=== PATIENT | male | born 1995 | race Caucasian/White ===

== ENCOUNTER 2016-12-02 16:32 | Emergency (ER) | payer OTHER ==
[2016-12-02 16:37] VITALS: BMI 21.1
--- NOTE | 2016-12-02 17:29 | PDOC ---
History of Present Illness <ThiAlvaro - Last Filed: 12/02/16 21:41> - General History Source: Patient Exam Limitations: No Limitations - History of Present Illness Initial Comments: 12/02/16 18:12 The patient is a 21 year old male, with no significant past medical history, who presents to the emergency department with dizziness this morning. The patient states his dizziness began 3 days ago, intermittent with 4-5 episodes daily and is exacerbated with positional head changes. Patient states he is unable to walk straight secondary to his dizziness. Patient states he had a similar episode 2 years ago and was previously evaluated. Patient presents to the ED for further evaluation. He denies chest pain, headache. He denies fever, chills, nausea, vomit, diarrhea or constipation. He denies dysuria, frequency, urgency or hematuria. Allergies: NKA Past surgical history:None Social history: Denies PCP: Dr. Curiel <Dayan Bustos - Last Filed: 12/02/16 21:59> - General Chief Complaint: Lightheaded Stated Complaint: PCP SENT Time Seen by Provider: 12/02/16 17:29 Past History - Past Medical History Other medical history: NONE - Psycho/Social/Smoking Cessation Hx Anxiety: No Suicidal Ideation: No Smoking History: Never smoked Hx Alcohol Use: Yes (SOCIAL) Drug/Substance Use Hx: No Substance Use Type: None <Alvaro Ness - Last Filed: 12/02/16 21:41> <Dayan Bustos - Last Filed: 12/02/16 21:59> - Past Medical History Allergies/Adverse Reactions: Allergies Allergy/AdvReac Type Severity Reaction Status Date / Time No Known Allergies Allergy Verified 12/02/16 16:37 Home Medications: Ambulatory Orders Meclizine HCl [Antivert -] 25 mg PO QID #120 tablet 12/02/16 Review of Systems - Review of Systems Able to Perform ROS?: Yes Comments:: 12/02/16 18:12 GENERAL/CONSTITUTIONAL: No fever or chills. No weakness. HEAD, EYES, EARS, NOSE AND THROAT: No change in vision. No ear pain or discharge. No sore throat. CARDIOVASCULAR: No chest pain or shortness of breath. RESPIRATORY: No cough, wheezing, or hemoptysis. GASTROINTESTINAL: No nausea, vomiting, diarrhea or constipation. GENITOURINARY: No dysuria, frequency, or change in urination. MUSCULOSKELETAL: No joint or muscle swelling or pain. No neck or back pain. SKIN: No rash NEUROLOGIC: + dizziness. No headache, vertigo, loss of consciousness, or change in strength/sensation. ENDOCRINE: No increased thirst. No abnormal weight change. HEMATOLOGIC/LYMPHATIC: No anemia, easy bleeding, or history of blood clots. ALLERGIC/IMMUNOLOGIC: No hives or skin allergy. <Dayan Bustos - Last Filed: 12/02/16 21:59> *Physical Exam - Vital Signs Last Vital Signs Temp Pulse Resp BP Pulse Ox 98.0 F 96 H 20 147/82 98 12/02/16 16:33 12/02/16 16:33 12/02/16 16:33 12/02/16 16:33 12/02/16 16:33 <Alvaro Ness - Last Filed: 12/02/16 21:41> - Vital Signs Last Vital Signs Temp Pulse Resp BP Pulse Ox 98.0 F 96 H 20 147/82 98 12/02/16 16:33 12/02/16 16:33 12/02/16 16:33 12/02/16 16:33 12/02/16 16:33 - Physical Exam Comments: 12/02/16 18:12 GENERAL: Awake, alert, and fully oriented, in no acute distress HEAD: No signs of trauma EYES: PERRLA, EOMI, sclera anicteric, conjunctiva clear ENT: Auricles normal inspection, hearing grossly normal, nares patent, oropharynx clear without exudates. Moist mucosa NECK: Normal ROM, supple, no lymphadenopathy, JVD, or masses LUNGS: Breath sounds equal, clear to auscultation bilaterally. No wheezes, and no crackles HEART: Regular rate and rhythm, normal S1 and S2, no murmurs, rubs or gallops ABDOMEN: Soft, nontender, normoactive bowel sounds. No guarding, no rebound. No masses EXTREMITIES: Normal range of motion, no edema. No clubbing or cyanosis. No cords, erythema, or tenderness NEUROLOGICAL: +Nystagmus. Cranial nerves II through XII grossly intact. Normal speech, normal gait. SKIN: Warm, Dry, normal turgor, no rashes or lesions noted. <Dayan Bustos - Last Filed: 12/02/16 21:59> Heart Score/ECG Review #1 12/02/16 18:55 Previous EKG provided by Patient on 12/02/16 from Urgent [facility]. rate 74 NSR ME Interval 112/174 QRS Duration 88 ms QT/QTc 366/406 ms P-R-T axes 62/50/[address] Thi Moya. rate 75 bpm NSR ME Interval 176 ms QRS Duration 86 m QT/QTc 385/399 P-R-T axes 63 61 31 <Dayan Bustos - Last Filed: 12/02/16 21:59> ED Treatment Course - LABORATORY CBC & Chemistry Diagram: 12/02/16 18:20 12/02/16 18:20 <Alvaro Ness - Last Filed: 12/02/16 21:41> - LABORATORY CBC & Chemistry Diagram: 12/02/16 18:20 12/02/16 18:20 <Dayan Bustos - Last Filed: 12/02/16 21:59> Medical Decision Making - Medical Decision Making 12/02/16 18:12 Will check EKG, CXR, labs ,Urine and Head CT Orthostatics vs vertigo Will discharge with antivert. Will react if tests appear abnormal. Head CT IMPRESSION: No evidence of acute intracranial pathology. Reported By: Frantz Aleman MD Chest Xray <Dayan Bustos - Last Filed: 12/02/16 21:59> *DC/Admit/Observation/Transfer - Attestations Physician Attestion: 12/02/16 17:29 I, Dr. Alvaro Ness, attest that this document has been prepared under my direction and personally reviewed by me in its entirety. I further attest, that it accurately reflects all work, treatment, procedures and medical decision -making performed by me. <Alvaro Ness - Last Filed: 12/02/16 21:41> - Attestations Scribe Attestion: 12/02/16 18:13 Documentation prepared by Dayan Bustos, acting as medical leader for Alvaro Ness DO. <Dayan Bustos - Last Filed: 12/02/16 21:59> Diagnosis at time of Disposition: Vertigo Meniere syndrome Qualifiers: Laterality: unspecified laterality Qualified Code(s): H81.09 - Meniere's disease, unspecified ear - Discharge Dispostion Disposition: HOME Condition at time of disposition: Good - Prescriptions Prescriptions: Meclizine HCl [Antivert -] 25 mg PO QID #120 tablet - Referrals Referrals: Terrell Curiel MD [Primary Care Provider] - - Patient Instructions Printed Discharge Instructions: DI for Meniere's Disease, DI for Vertigo Additional Instructions: Eliel- Don't Drive until Dr Del Real says that it is ok. Use the antivert to help with the dizziness. Return to us if any problems. Best- Dr. Alvaro Ness
[2016-12-02 18:43] LABS: URINE APPEARANCE CLEAR; URINE BILIRUBIN NEGATIVE (NEGATIVE); URINE BLOOD NEGATIVE (NEGATIVE); URINE COLOR YELLOW; URINE GLUCOSE (UA) NEGATIVE (NEGATIVE); URINE KETONE TRACE (NEGATIVE); URINE LEUK ESTERASE NEGATIVE (NEGATIVE); URINE NITRITE NEGATIVE (NEGATIVE); URINE PROTEIN NEGATIVE (NEGATIVE); URINE UROBILINOGEN NEGATIVE E.U./dl (0.2-1.0)
[2016-12-02 18:56] LABS: BASOPHIL 0.7 % (0-2.0); MCHC 33.2 g/dl (32.0-35.9)
[2016-12-02 18:58] LABS: EOSINOPHIL 4.6 % (0-4.5); MCH 29.2 pg (25.7-33.7); MEAN CELL VOLUME 88.1 fl (80-96); MEAN PLT VOLUME 9.3 fl (7.5-11.1); NEUTROPHILS 55.1 % (42.8-82.8); PLATELET COUNT 178 K/MM3 (134-434); RDW 13.4 % (11.9-15.9); WHITE BLOOD COUNT 6.9 K/mm3 (4.0-10.0)
[2016-12-02 19:12] LABS: INR 1.09 (0.82-1.09)
[2016-12-02 19:58] LABS: ALBUMIN 4.2 g/dl (3.4-5.0); ANION GAP 12 (8-16); CALCIUM 9.2 mg/dL (8.5-10.1); CO2 26 mmol/L (21-32); COCKROFT - GAULT 131.03; CREATININE 0.9 mg/dL (0.7-1.3); GLUCOSE,RANDOM 94 mg/dL (74-106)
[2016-12-02 20:03] LABS: ALK PHOS 83 U/L (45-117); BILIRUBIN,TOTAL 0.2 mg/dL (0.2-1.0); SGOT/AST 19 U/L (15-37); SGPT/ALT 24 U/L (12-78); TOT PROT 7.5 g/dl (6.4-8.2); TROPONIN I < 0.02 ng/ml (0.00-0.05)
[2016-12-02 22:04] VITALS: BP 136/83; PULSE 71; TEMP 98.2
--- NOTE | 2016-12-03 13:07 | EKG ---
Test Reason : Blood Pressure : / mmHG Vent. Rate : 075 BPM Atrial Rate : 075 BPM P-R Int : 176 ms QRS Dur : 086 ms QT Int : 358 ms P-R-T Axes : 063 061 031 degrees QTc Int : 399 ms NORMAL SINUS RHYTHM NORMAL ECG NO PREVIOUS ECGS AVAILABLE Confirmed by PILI ROGERS MD ([id number]) on 12/03/2016 1:07:18 PM Referred By: Confirmed By:PILI ROGERS MD
== END 2016-12-02 22:04 | disposition home or self-care (01) ==
LOC: JER 16:32
DX: H81.09 Meniere's disease, unspecified ear (principal)
CPT/HCPCS: 36415; 70450-TC; 71010-TC; 80053; 81003; 82550; 82553; 84484; 85025; 85610; 93005; 93010; 99283-25

== ENCOUNTER 2017-08-09 10:08 | Emergency (ER) | payer OTHER ==
[2017-08-09 10:13] VITALS: BP 141/80; PULSE 103; TEMP 98.3; BMI 26.4
[2017-08-09] MEDS ORDERED: IBUPROFEN 400 MG TABLET (FP) PO ONE ×2 (11:12→11:17)
--- NOTE | 2017-08-09 11:22 | PDOC ---
History of Present Illness - General Chief Complaint: Injury Stated Complaint: LT ARM PAIN Time Seen by Provider: 08/09/17 11:07 History Source: Patient - History of Present Illness Occurred: reports: other Severity: reports: moderate Upper Extremity Pain Location: left: forearm Method of Injury: reports: other Past History - Past Medical History Allergies/Adverse Reactions: Allergies Allergy/AdvReac Type Severity Reaction Status Date / Time No Known Allergies Allergy Verified 08/09/17 10:09 Home Medications: Ambulatory Orders NK [No Known Home Medication] 08/09/17 COPD: No - Suicide/Smoking/Psychosocial Hx Smoking History: Never smoked Have you smoked in the past 12 months: No Information on smoking cessation initiated: No Hx Alcohol Use: Yes (SOCIAL) Drug/Substance Use Hx: No Substance Use Type: None Review of Systems - Review of Systems Musculoskeletal: No: Joint Pain, Joint Swelling Neurological: No: Numbness, Tingling *Physical Exam - Vital Signs Last Vital Signs Temp Pulse Resp BP Pulse Ox 98.3 F 103 H 18 141/80 100 08/09/17 10:11 08/09/17 10:11 08/09/17 10:11 08/09/17 10:11 08/09/17 10:11 - Physical Exam General Appearance: Yes: Appropriately Dressed. No: Apparent Distress HEENT: positive: Normal Voice Neck: positive: Supple Respiratory/Chest: negative: Respiratory Distress Musculoskeletal: positive: Vertebral Tenderness Extremity: positive: Normal Inspection, Tender (to volar aspect of proximal L forearm, no joint swelling, FROMI, NVI). negative: Swelling Integumentary: positive: Dry, Warm Neurologic: positive: Fully Oriented, Alert, Normal Mood/Affect Medical Decision Making - Medical Decision Making 08/09/17 11:15 21 yo male, no sig hx, p/w pain to L forearm that started 5 days ago after pt states he suddenly extended L elbow while playing with his nephew. Taking otc w / no relief but does admit that pain is gradually improving. No sensory changes See exam M/l LUE strain No e/o serious injury at this time -dc w/ otc meds and pmd f/u as needed *DC/Admit/Observation/Transfer Diagnosis at time of Disposition: Muscle strain of left upper arm Qualifiers: Encounter type: initial encounter Qualified Code(s): S46.912A - Strain of unspecified muscle, fascia and tendon at shoulder and upper arm level, left arm , initial encounter - Discharge Dispostion Disposition: HOME Condition at time of disposition: Good - Referrals Referrals: Terrell Curiel MD [Primary Care Provider] - - Patient Instructions Printed Discharge Instructions: Muscle Strain Additional Instructions: Take ibuprofen/Motrin 800 mg every 6 hours. If symptoms persist, please follow-up with your primary care physician - Post Discharge Activity Forms/Work/School Notes: Back to Work
== END 2017-08-09 11:22 | disposition home or self-care (01) ==
LOC: JERFT 10:08
DX: S46.812A Strain of other muscles, fascia and tendons at shoulder and upper arm level, left arm, initial encounter (principal); X50.0XXA Overexertion from strenuous movement or load, initial encounter; Y93.89 Activity, other specified; Y92.89 Other specified places as the place of occurrence of the external cause; Y99.8 Other external cause status
CPT/HCPCS: 99281-25

== ENCOUNTER 2017-11-22 08:58 | Emergency (ER) | payer OTHER ==
[2017-11-22 09:04] VITALS: BP 141/76; PULSE 77; TEMP 98.7; BMI 29.7
[2017-11-22 09:56] LABS: BASO % 0.6 % (0-2.0); EOS % 1.9 % (0-4.5); HEMATOCRIT 46.3 % (35.4-49); HEMOGLOBIN 15.9 GM/dL (11.7-16.9); LYMPH % 20.2 % (8-40); MCH 30.2 pg (25.7-33.7); MCHC 34.4 g/dl (32.0-35.9); MEAN CELL VOLUME 87.8 fl (80-96); MEAN PLT VOLUME 8.9 fl (7.5-11.1); MONO % 8.1 % (3.8-10.2); NEUT % 69.2 % (42.8-82.8); PLATELET COUNT 175 K/MM3 (134-434); RBC 5.27 M/mm3 (4.00-5.60); RDW 13.5 % (11.9-15.9); WHITE BLOOD COUNT 6.8 K/mm3 (4.0-10.0)
[2017-11-22 10:16] LABS: ALBUMIN 4.3 g/dl (3.4-5.0); ALK PHOS 102 U/L (45-117); ANION GAP 7 (8-16); BILIRUBIN,TOTAL 0.5 mg/dL (0.2-1.0); BLOOD UREA NITROGEN 12 mg/dL (7-18); CALCIUM 8.7 mg/dL (8.5-10.1); CHLORIDE 108 mmol/L (98-107); CO2 25 mmol/L (21-32); CREATININE 0.9 mg/dL (0.7-1.3); GLUCOSE,RANDOM 99 mg/dL (74-106); SGPT/ALT 22 U/L (12-78); SODIUM 140 mmol/L (136-145); TOT PROT 7.9 g/dl (6.4-8.2)
--- NOTE | 2017-11-22 10:20 | PDOC ---
History of Present Illness - General Chief Complaint: Back Pain Stated Complaint: BACK PAIN, WEAKNESS Time Seen by Provider: 11/22/17 09:23 History Source: Patient - History of Present Illness Associated Symptoms: denies: chest pain, cough, diaphoresis, fever/chills, headaches, loss of appetite, nausea/vomiting, rash, shortness of breath, syncope , weakness Past History - Past Medical History Allergies/Adverse Reactions: Allergies Allergy/AdvReac Type Severity Reaction Status Date / Time No Known Allergies Allergy Verified 11/22/17 08:59 Home Medications: Ambulatory Orders NK [No Known Home Medication] 08/09/17 COPD: No - Suicide/Smoking/Psychosocial Hx Smoking History: Never smoked Have you smoked in the past 12 months: No Information on smoking cessation initiated: No Hx Alcohol Use: Yes (SOCIAL) Drug/Substance Use Hx: No Substance Use Type: None Review of Systems - Review of Systems Constitutional: Yes: Malaise. No: Chills, Fever, Unexplained wgt Loss HEENTM: No: Ear Pain, Throat Pain Respiratory: No: Cough, Shortness of Breath Cardiac (ROS): Yes: Lightheadedness. No: Chest Pain, Palpitations, Syncope ABD/GI: No: Diarrhea, Nausea, Vomiting, Abdominal cramping : No: Dysuria Musculoskeletal: Yes: Back Pain. No: Muscle Weakness Neurological: Yes: Dizziness. No: Headache, Numbness, Tingling, Weakness *Physical Exam - Vital Signs Last Vital Signs Temp Pulse Resp BP Pulse Ox 98.7 F 77 18 141/76 100 11/22/17 09:01 11/22/17 09:01 11/22/17 09:01 11/22/17 09:01 11/22/17 09:01 - Physical Exam General Appearance: Yes: Appropriately Dressed. No: Apparent Distress HEENT: positive: Normal ENT Inspection, Normal Voice. negative: Scleral Icterus (R), Scleral Icterus (L), Muffled/Hoarse voice, Tonsillar Exudate Neck: positive: Supple. negative: Tender, Decreased range of motion, Lymphadenopathy (R), Lymphadenopathy (L) Respiratory/Chest: positive: Lungs Clear, Normal Breath Sounds. negative: Respiratory Distress Cardiovascular: positive: Regular Rate, S1, S2 Gastrointestinal/Abdominal: positive: Soft. negative: Tender Musculoskeletal: positive: Normal Inspection. negative: CVA Tenderness, Vertebral Tenderness Extremity: positive: Normal Inspection Integumentary: positive: Dry, Warm Neurologic: positive: high risk ob II-XII NML intact, Fully Oriented, Alert, Normal Mood/ Affect. negative: Motor Strength 11/13 ED Treatment Course - LABORATORY CBC & Chemistry Diagram: 11/22/17 09:45 11/22/17 09:45 Medical Decision Making - Medical Decision Making 11/22/17 09:51 22 yo M, denies any pmhx, here with a constellation of symptoms. Pt reports that 3 days ago he suddenly began experiencing generalized body aches, especially to lower back, right hand and bilateral lower extremity with a sense of heaviness to lower extremities upon walking. Denies lower extremity weakness , numbness or tingling. States he had one episode of dizziness 3 days ago that has since resolved. Also reports that he feels "weird" inside his body. No headache, neck pain, nausea, vomiting, URI symptoms, fever, chills, chest pain, shortness of breath, abdominal pain, change in bowel movements, dysuria or unexplained weight loss. Denies prior episode. Has significant family history of diabetes per patient. No polyuria/dipsia or dysphagia. No recent travel or sick contacts. 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 Patient continues to appear well with unremarkable exam. Will discharge to follow-up with his PMD, Dr. Ma, for further evaluation if symptoms persist. In the meantime, patient to rest, drink plenty of fluids and take Motrin or Tylenol for pain *DC/Admit/Observation/Transfer Diagnosis at time of Disposition: Body aches, Heavy sensation of lower extremity, Dizziness - Discharge Dispostion Disposition: HOME Condition at time of disposition: Good - Referrals Referrals: Terrell Curiel MD [Primary Care Provider] - - Patient Instructions Additional Instructions: The cause for your symptoms are unclear at this time as your exam and labs were normal. If symptoms persists, please call your PMD to schedule an appointment for further evaluation. If in the meantime, rest, drink plenty of fluids and take Motrin or Tylenol for pain. If symptoms worsen, return to the ER - Post Discharge Activity Forms/Work/School Notes: Back to Work
[2017-11-22 10:40] LABS: POTASSIUM 4.1 mmol/L (3.5-5.1)
[2017-11-22 10:41] LABS: SGOT/AST 22 U/L (15-37)
== END 2017-11-22 10:49 | disposition home or self-care (01) ==
LOC: JERFT 08:58
DX: R52 Pain, unspecified (principal); R53.1 Weakness; R42 Dizziness and giddiness
CPT/HCPCS: 36415; 80053; 85025; 99281-25

== ENCOUNTER 2017-11-26 22:33 | Observation (INO) | payer OTHER ==
[2017-11-26 22:47] VITALS: BMI 29.0
--- NOTE | 2017-11-26 23:36 | PDOC ---
History of Present Illness <Isha Solis I - Last Filed: 11/27/17 05:56> - General History Source: Patient, Old Records Exam Limitations: No Limitations - History of Present Illness Initial Comments: 11/26/17 23:33 This is a 22-year-old male without significant past medical history of presents emergency Department with intermittent bifrontal headaches and dizziness for the past one month. Patient states she was seen and evaluated her earlier this week and was told to take Motrin for the pain which is given a minimal relief of symptoms. States since that time his previous evaluation has been experiencing frontal headaches and subjective fevers. He denies any blurry vision, dizziness, nausea, vomiting, chest pain, shortness of breath. <Brett Choi - Last Filed: 11/27/17 06:38> - General Chief Complaint: Headache Stated Complaint: HEADACHE Time Seen by Provider: 11/26/17 23:21 Past History <Isha Solis I - Last Filed: 11/27/17 05:56> - Past Medical History COPD: No - Suicide/Smoking/Psychosocial Hx Smoking History: Never smoked Have you smoked in the past 12 months: No Information on smoking cessation initiated: No Hx Alcohol Use: No Drug/Substance Use Hx: No Substance Use Type: None <JimboBrett - Last Filed: 11/27/17 06:38> - Past Medical History Allergies/Adverse Reactions: Allergies Allergy/AdvReac Type Severity Reaction Status Date / Time No Known Allergies Allergy Verified 11/26/17 22:47 Review of Systems - Review of Systems Able to Perform ROS?: Yes Is the patient limited Urdu proficient: No Constitutional: Yes: See HPI HEENTM: No: Symptoms Reported Respiratory: No: Symptoms reported Cardiac (ROS): No: Symptoms Reported ABD/GI: No: Symptoms Reported : No: Symptoms Reported Musculoskeletal: No: Symptoms Reported Integumentary: No: Symptoms Reported Neurological: Yes: See HPI Endocrine: No: Symptoms Reported Hematologic/Lymphatic: No: Symptoms Reported <Brett Choi - Last Filed: 11/27/17 06:38> *Physical Exam - Vital Signs Last Vital Signs Temp Pulse Resp BP Pulse Ox 100.3 F H 108 H 18 142/77 100 11/26/17 22:45 11/26/17 22:45 11/26/17 22:45 11/26/17 22:45 11/26/17 22:45 <Agaba,Comfort I - Last Filed: 11/27/17 05:56> - Vital Signs Last Vital Signs Temp Pulse Resp BP Pulse Ox 100.3 F H 108 H 18 142/77 100 11/26/17 22:45 11/26/17 22:45 11/26/17 22:45 11/26/17 22:45 11/26/17 22:45 - Physical Exam General Appearance: Yes: Appropriately Dressed. No: Apparent Distress HEENT: positive: EOMI, LUIS, Normal Voice, TMs Normal, Pharyngeal Erythema, Tonsillar Erythema, Nasal Congestion. negative: Tonsillar Exudate, Sinus Tenderness Neck: positive: Trachea midline, Lymphadenopathy (R), Lymphadenopathy (L) Respiratory/Chest: positive: Lungs Clear, Normal Breath Sounds. negative: Respiratory Distress, Accessory Muscle Use Cardiovascular: positive: Regular Rhythm, Tachycardia. negative: Murmur Gastrointestinal/Abdominal: positive: Normal Bowel Sounds, Soft. negative: Tender Musculoskeletal: positive: Normal Inspection. 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, Fully Oriented, Alert, Normal Mood/ Affect, Normal Response, Motor Strength 5/5, Finger to Nose <Brett Choi - Last Filed: 11/27/17 06:38> ED Treatment Course - LABORATORY CBC & Chemistry Diagram: 11/27/17 01:40 11/27/17 01:40 - ADDITIONAL ORDERS Additional order review: Laboratory Results 11/27/17 01:40 Sodium 138 Potassium 4.3 Chloride 106 Carbon Dioxide 28 Anion Gap 4 L BUN 15 D Creatinine 1.1 D Creat Clearance w eGFR > 60 Random Glucose 99 Calcium 8.1 L Total Bilirubin 0.4 AST 11 L D ALT 16 D Alkaline Phosphatase 83 Total Protein 6.9 Albumin 3.8 11/26/17 23:44 Group A Strep Rapid Antigen - Final Throat 11/27/17 01:40 RBC 4.76 MCV 86.9 MCHC 33.9 RDW 13.0 MPV 8.7 Neutrophils % 80.4 Lymphocytes % 11.6 D Monocytes % 7.3 Eosinophils % 0.3 D Basophils % 0.4 - Medications Given in the ED: ED Medications Discontinued Medications Generic Name Dose Route Start Last Admin Trade Name Freq PRN Reason Stop Dose Admin Acetaminophen 975 mg 11/26/17 23:44 11/27/17 00:10 Tylenol - PO 11/26/17 23:45 975 mg ONCE ONE Administration Diphenhydramine HCl 12.5 mg 11/27/17 01:03 11/27/17 02:14 Benadryl Injection - IVPUSH 11/27/17 01:04 12.5 mg ONCE ONE Administration Sodium Chloride 1,000 mls @ 1,000 mls/hr 11/26/17 23:44 11/27/17 00:10 Normal Saline - IV 11/27/17 00:43 1,000 mls/hr ASDIR STA Administration Ketorolac Tromethamine 30 mg 11/27/17 01:03 11/27/17 02:14 Toradol Injection - IVPUSH 11/27/17 01:04 30 mg ONCE ONE Administration Metoclopramide HCl 10 mg 11/27/17 01:03 11/27/17 02:14 Reglan Injection - IVPUSH 11/27/17 01:04 10 mg ONCE ONE Administration <Isha Solis I - Last Filed: 11/27/17 05:56> - LABORATORY CBC & Chemistry Diagram: 11/27/17 01:40 11/27/17 01:40 <Brett Choi - Last Filed: 11/27/17 06:38> Medical Decision Making - Medical Decision Making 11/26/17 23:50 A/P: 22-year-old male with 1 month of intermittent headaches and dizziness now with sore throat and fevers. Pharyngeal and tonsillar erythema noted. No exudates present Tender anterior cervical lymphadenopathy present bilaterally Lungs clear to auscultation bilaterally. EOMI. PERRLA Cranial nerves II through XII grossly intact. No photophobia No meningismus present Negative Kernig Negative Brezinski Finger-nose testing is within normal limits. Gait is steady No nystagmus present. Rapid strep testing, IV fluids, Tylenol, reassessed Rapid strep testing is negative. Patient reports pain is currently 6/10 down from 7/10 upon arrival. I'll add Toradol, Benadryl, Reglan. CT head. 11/27/17 03:31 Patient currently with headache 3/10 which he states is tolerable. 11/27/17 04:13 CT of the head as read by imaging hone operator: Probable large arachnoid cyst in bilateral middle cranial fossa, left larger than right. The ventricles are not enlarged. No acute adrenal hemorrhage or acute infarction. Visualized aspects of the paranasal sinuses and mastoid air cells are remarkable for a polyp or cyst in the left maxillary antrum. No acute fracture. 11/27/17 04:33 Called placed for neurologist. 11/27/17 05:59 Admitted to Hospitalist accepted by [facility]. 11/27/17 06:[address] Nichols who states arachnoid cysts are congenital malformations that do not cause symptoms. He also stated no further imaging or intervention would be needed regarding the arachnoid cyst. This has been relayed to primary team. <Brett Choi - Last Filed: 11/27/17 06:38> *DC/Admit/Observation/Transfer <Isha Solis I - Last Filed: 11/27/17 05:56> - Discharge Dispostion Decision to Admit order: Yes <Brett Choi - Last Filed: 11/27/17 06:38> Diagnosis at time of Disposition: Arachnoid cyst Headache Qualifiers: Headache type: unspecified Headache chronicity pattern: acute headache Intractability: not intractable Qualified Code(s): R51 - Headache - Discharge Dispostion Condition at time of disposition: Fair
[2017-11-26] MEDS ORDERED: ACETAMINOPHEN 500 MG TABLET (FP) PO ONE (23:44)
[2017-11-26] MEDS ORDERED: SODIUM CHLORIDE 1,000 ML IV STA (23:44)
[2017-11-26] MEDS ORDERED: ACETAMINOPHEN 325 MG TABLET (FP) ONE (23:57)
[2017-11-27] MEDS ORDERED: METOCLOPRAMIDE HCL INJECTION 10 MG/2 ML VIAL IVPUSH ONE (01:03)
[2017-11-27] MEDS ORDERED: KETOROLAC TROMETHAMINE 30 MG/1 ML VIAL IVPUSH ONE (01:03)
[2017-11-27] MEDS ORDERED: METOCLOPRAMIDE HCL INJECTION 10 MG/2 ML VIAL ONE (01:27)
[2017-11-27] MEDS ORDERED: KETOROLAC TROMETHAMINE 30 MG/1 ML VIAL ONE (01:27)
[2017-11-27 02:00] LABS: BASO % 0.4 % (0-2.0); EOS % 0.3 % (0-4.5); HEMATOCRIT 41.4 % (35.4-49); LYMPH % 11.6 % (8-40); MCH 29.4 pg (25.7-33.7); MCHC 33.9 g/dl (32.0-35.9); MEAN CELL VOLUME 86.9 fl (80-96); MEAN PLT VOLUME 8.7 fl (7.5-11.1); MONO % 7.3 % (3.8-10.2); NEUT % 80.4 % (42.8-82.8); PLATELET COUNT 182 K/MM3 (134-434); RBC 4.76 M/mm3 (4.00-5.60); WHITE BLOOD COUNT 9.6 K/mm3 (4.0-10.0)
[2017-11-27 02:23] LABS: ALBUMIN 3.8 g/dl (3.4-5.0); ANION GAP 4 (8-16); BILIRUBIN,TOTAL 0.4 mg/dL (0.2-1.0); BLOOD UREA NITROGEN 15 mg/dL (7-18); CALCIUM 8.1 mg/dL (8.5-10.1); CHLORIDE 106 mmol/L (98-107); CO2 28 mmol/L (21-32); CREATININE 1.1 mg/dL (0.7-1.3); GLUCOSE,RANDOM 99 mg/dL (74-106); POTASSIUM 4.3 mmol/L (3.5-5.1); SGOT/AST 11 U/L (15-37); SGPT/ALT 16 U/L (12-78); SODIUM 138 mmol/L (136-145); TOT PROT 6.9 g/dl (6.4-8.2)
[2017-11-27 02:24] LABS: ALK PHOS 83 U/L (45-117)
--- NOTE | 2017-11-27 04:29 | HP ---
CHIEF COMPLAINT: Headache x 1 day PCP: Dr Ma HISTORY OF PRESENT ILLNESS: Pt is a 22 yo M with no signif PMHx presenting with generalized headache since waking up at 5am yesterday. The pain is generalized, constant, non-radiating 10/10 pain with associated nausea but no vomiting. The headache remained constant until he received medications in the ED and the pain is now 3/10 with resolution of the nausea. There is no neck stiffness, no chills or subjective fevers. No cough, or nasal congestion. No hx of trauma to the head, no seizures, no syncope. No blurry vision or hearing loss, No tremors. Pt described a tingling sensation associated with fullness in the groin /scrotal area that has since resolved. No previous hx of hernia. Pt denies dysuria, urethral discharge or recent sexual contact. Pt plays soccer over the weekends and acknowledges repeated blunt force trauma to the groin area that is not severe enough to keep him from playing. Pt describes no photophobia, but said his eyes felt weak and were red for about two hours then resolved on their own. No aura, no seizures, no fecal or urinary incontinence. Pt notes one week hx of generalized malaise prior to the onset of the headache. No joint pain or swelling, no insect bites, no contact with someone with similar symptoms. Pt has had headaches in the past that he describes as migraines, which resolved with over the counter pain medication. ER course was notable for: (1) Tmax-100.3, IL-108, RR-18, 142/77 (2) CBC, CMP-wnl (3) Normal saline, toradol, benadryl and reglan (4) CT head w/o contrast-probable large arachnoid cysts in bilateral middle cranial fossa, L>R. Ventricles are not enlarged. The visualized aspect of the paranasal sinuses and mastoid air cells are remarkable for a polyp or cyst in the L max antrium. (5) EKG- NSR, ventricular rate-83bpm, QT/QTc-372/437 Recent Travel: PAST MEDICAL HISTORY: PAST SURGICAL HISTORY: Social History: Lives with mother and brother. 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 Smoking: Denies Alcohol: Social Drugs: Denies Family History: Allergies No Known Allergies Allergy (Verified 11/26/17 22:47) HOME MEDICATIONS: REVIEW OF SYSTEMS CONSTITUTIONAL: Absent: fever, chills, diaphoresis, generalized weakness+, malaise+, loss of appetite, weight change HEENT: Absent: rhinorrhea, nasal congestion, throat pain, throat swelling, difficulty swallowing, mouth swelling, ear pain, eye pain, visual changes CARDIOVASCULAR: Absent: chest pain, syncope, palpitations, irregular heart rate, lightheadedness , peripheral edema RESPIRATORY: Absent: cough, shortness of breath, dyspnea with exertion, orthopnea, wheezing, stridor, hemoptysis GASTROINTESTINAL: Absent: abdominal pain, abdominal distension, nausea+, vomiting, diarrhea, constipation, melena, hematochezia GENITOURINARY: Absent: dysuria, frequency, urgency, hesitancy, hematuria, flank pain, genital pain MUSCULOSKELETAL: Absent: myalgia, arthralgia, joint swelling, back pain, neck pain SKIN: Absent: rash, itching, pallor HEMATOLOGIC/IMMUNOLOGIC: Absent: easy bleeding, easy bruising, lymphadenopathy, frequent infections ENDOCRINE: Absent: unexplained weight gain, unexplained weight loss, heat intolerance, cold intolerance NEUROLOGIC: Absent: headache, focal weakness or paresthesias, dizziness, unsteady gait, seizure, mental status changes, bladder or bowel incontinence PSYCHIATRIC: Absent: anxiety, depression, suicidal or homicidal ideation, hallucinations. PHYSICAL EXAMINATION Vital Signs - 24 hr 11/26/17 22:45 Temperature 100.3 F H Pulse Rate 108 H Respiratory 18 Rate Blood Pressure 142/77 O2 Sat by Pulse 100 Oximetry (%) GENERAL: Awake, alert, and fully oriented, in no acute distress. HEAD: Normal with no signs of trauma. EYES: Pupils equal, round and reactive to light, extraocular movements intact, no nystagmus EARS, NOSE, THROAT: Ears normal, nares patent, oropharynx clear without exudates. Moist mucous membranes. NECK: Normal range of motion, supple, no lymphadenopathy LUNGS: Breath sounds equal, clear to auscultation bilaterally. No wheezes, and no crackles HEART: tachycardic, S1 and S2 ABDOMEN: Soft, nontender, not distended, normoactive bowel sounds. No inguinal hernias, no palpable masses, no scrotal tenderness, normal bilaterally descended testes, no urethral discharge. MUSCULOSKELETAL: Normal range of motion at all joints. No bony deformities or tenderness. No CVA tenderness. UPPER EXTREMITIES: 2+ pulses, warm, well-perfused. LOWER EXTREMITIES: 2+ pulses, warm, well-perfused. No calf tenderness. No peripheral edema. NEUROLOGICAL: Cranial nerves II-XII intact. Normal speech. Normal gait. no facial droop, normal reflexes, tone and muscle strength, no tremors Laboratory Results - last 24 hr 11/27/17 11/27/17 01:40 01:40 WBC 9.6 D RBC 4.76 Hgb 14.0 D Hct 41.4 MCV 86.9 MCH 29.4 MCHC 33.9 RDW 13.0 Plt Count 182 MPV 8.7 Neutrophils % 80.4 Lymphocytes % 11.6 D Monocytes % 7.3 Eosinophils % 0.3 D Basophils % 0.4 Sodium 138 Potassium 4.3 Chloride 106 Carbon Dioxide 28 Anion Gap 4 L BUN 15 D Creatinine 1.1 D Creat Clearance w eGFR > 60 Random Glucose 99 Calcium 8.1 L Total Bilirubin 0.4 AST 11 L D ALT 16 D Alkaline Phosphatase 83 Total Protein 6.9 Albumin 3.8 ASSESSMENT/PLAN: Pt is a 22 yo M with no signif PMHx presenting with generalized headache, tachycardia and fever of 100.3 Headache: Could be due to a viral syndrome Pt describes prior malaise repeat vitals Received Normal saline, toradol, benadryl and reglan with improvement in symptoms R/O sepsis Tachycardia and Tmax of 100.3 (nonrectal) Sepsis workup pending- CXR, ua, Urine cx, utox, chlamydia/gonorrhea Arachnoid cyst on CT head Neuro consulted-see below Neurosx consulted- pending 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 - New Patient This patient is new to me today: Yes Date on this admission: 11/27/17 - Critical Care Critical Care patient: No Hospitalist Screening - Colonoscopy Questionnaire Colonoscopy Questionnaire: Colonoscopy Questionnaire - Patient: 50 - 75 years old and never had a screening colonoscopy: Unknown History of colon or rectal polyps, or CA: Unknown History of IBD, Crohn's disease or UC: Unknown History of abdominal radiation therapy as a child: Unknown - Relative: 1 with colon or rectal CA, or polyps at age 60 or younger: Unknown Colon or rectal CA diagnosed at age 45 or younger: Unknown Multiple relatives with colon or rectal CA: Unknown - Outcome: Screening Result: Negative Screen
--- NOTE | 2017-11-27 06:16 | PN ---
Teaching Attending Note Name of Resident: Isha Solis ATTENDING PHYSICIAN STATEMENT I saw and evaluated the patient. I reviewed the resident's note and discussed the case with the resident. I agree with the resident's findings and plan as documented. SUBJECTIVE: Patient is a 22-year-old male without significant past medical history of who presents with intermittent frontal headaches, dizziness and malaise for about one month. He also has had tingling sensation in the groin area and plays soccer for fun. He denies drug use or visual symptoms. CT scan of the brain showed arachnoid cysts and he had sinus tachycardia with low grade fever. He got a cocktail of benadryl, reglan and ketorolac and is feeling much better. OBJECTIVE: Vital Signs Period Temp Pulse Resp BP Sys/Rodriguez Pulse Ox Last 24 Hr 100.3 F 108 18 142/77 100 HEENT: Fundi not visualised. No oropharyngeal injection. No Jaundice, eye redness or discharge, PERRLA, EOMI. External ears are normal and hearing is grossly intact. No nasal discharge. Neck: Supple, nontender. No palpable adenopathy or thyromegaly. No JVD Chest: Good effort. Clear to auscultation and percussion. Heart: Tachycardia. No S3, rub or murmur Abdomen: Not distended, soft, nontender and no HSM Ext: Peripheral pulses intact. No leg edema. Skin: Warm and dry. No petechiae, rash or ecchymosis. Neuro: Alert. Oriented x3. CN 2-12 grossly intact. Sensation grossly intact in all four extremities and DTR are symmetric. Laboratory Results - last 24 hr 11/27/17 11/27/17 01:40 01:40 WBC 9.6 D RBC 4.76 Hgb 14.0 D Hct 41.4 MCV 86.9 MCH 29.4 MCHC 33.9 RDW 13.0 Plt Count 182 MPV 8.7 Neutrophils % 80.4 Lymphocytes % 11.6 D Monocytes % 7.3 Eosinophils % 0.3 D Basophils % 0.4 Sodium 138 Potassium 4.3 Chloride 106 Carbon Dioxide 28 Anion Gap 4 L BUN 15 D Creatinine 1.1 D Creat Clearance w eGFR > 60 Random Glucose 99 Calcium 8.1 L Total Bilirubin 0.4 AST 11 L D ALT 16 D Alkaline Phosphatase 83 Total Protein 6.9 Albumin 3.8 ASSESSMENT AND PLAN: 1. Viral syndrome - Patient has symptoms consistent with viral syndrome. There is no strong evidence to support meningitis or encephalitis. Will admit him as an observation case, monitor his temperature and mental status closely and repeat CBC - will strongly consider a spinal tap if his fever fails to resolve and WBC goes up or if his mental status changes. Blood culture, urinalysis, and urine toxicology will be obtained. Of concern is the finding of arachnoid cysts which could be causing increased intracranial pressure. Neurology and neurosurgery consults are pending. 2. Mild hypocalcemia - Will repeat serum calcium and if still low will embark on hypocalcemia workup. 3. DVT prophylaxis - Early ambulation and SCDs. 4. Advance directives - Full code
[2017-11-27 08:08] LABS: URINE APPEARANCE CLEAR; URINE BILIRUBIN NEGATIVE (<2.0 mg/dL); URINE COLOR LTYELLOW; URINE GLUCOSE (UA) NEGATIVE (NEGATIVE); URINE KETONE NEGATIVE (NEGATIVE); URINE LEUK ESTERASE NEGATIVE (NEGATIVE); URINE NITRITE NEGATIVE (NEGATIVE); URINE PROTEIN NEGATIVE (NEGATIVE); URINE UROBILINOGEN NEGATIVE mg/dL (0.2-1.0)
[2017-11-27 08:15] LABS: COCAINE, UR NEGATIVE ng/ml (CUTOFF=300); METHADONE, UR NEGATIVE ng/ml (CUTOFF=300); OPIATES, URI NEGATIVE ng/ml (CUTOFF=300); PHENCYCLIDINE,URINE NEGATIVE ng/ml (CUTOFF=25); URINE AMPHETAMINES NEGATIVE ng/ml (CUTOFF=500); URINE BARBITURATES NEGATIVE ng/ml (CUTOFF=200); URINE BENZODIAZEPINES NEGATIVE ng/ml (CUTOFF=200)
[2017-11-27 08:17] LABS: BASO % 0.6 % (0-2.0); EOS % 1.3 % (0-4.5); HEMATOCRIT 42.2 % (35.4-49); HEMOGLOBIN 14.5 GM/dL (11.7-16.9); LYMPH % 21.5 % (8-40); MCH 30.1 pg (25.7-33.7); MCHC 34.5 g/dl (32.0-35.9); MEAN CELL VOLUME 87.3 fl (80-96); MEAN PLT VOLUME 8.9 fl (7.5-11.1); MONO % 9.3 % (3.8-10.2); NEUT % 67.3 % (42.8-82.8); PLATELET COUNT 179 K/MM3 (134-434); RBC 4.83 M/mm3 (4.00-5.60); RDW 13.2 % (11.9-15.9); WHITE BLOOD COUNT 7.9 K/mm3 (4.0-10.0)
[2017-11-27 08:22] LABS: ALBUMIN 3.9 g/dl (3.4-5.0); ANION GAP 5 (8-16); BILIRUBIN,TOTAL 0.7 mg/dL (0.2-1.0); BLOOD UREA NITROGEN 15 mg/dL (7-18); CALCIUM 8.3 mg/dL (8.5-10.1); CHLORIDE 106 mmol/L (98-107); CO2 28 mmol/L (21-32); CREATININE 0.9 mg/dL (0.7-1.3); GLUCOSE,RANDOM 80 mg/dL (74-106); POTASSIUM 3.9 mmol/L (3.5-5.1); SGOT/AST 14 U/L (15-37); SODIUM 139 mmol/L (136-145); TOT PROT 7.1 g/dl (6.4-8.2)
[2017-11-27 08:27] LABS: ALK PHOS 87 U/L (45-117); SGPT/ALT 16 U/L (12-78)
--- NOTE | 2017-11-27 12:10 | PN ---
Progress Note (short form) - Note Progress Note: NEUROSURGERY CONSULT DICTATED H/o frontal headaches, dizziness and malaise for about one month, worse since last night. Mild nausea yesteday but no vomiting. NO LOC, no visual changes.He also has had tingling sensation in the groin area. He denies drug use. CT scan of the brain showed arachnoid cysts and he had sinus tachycardia with low grade fever. Tmax 100.3, now 99.2, VSS HEENT- NC/AT; Neck- supple; Cor- RR; Lungs- CTA B; Abd- benign; Ext- no sign of DVT A/A/Ox3 CN- intact II-XII; Motor- 5/5 without drift; Sensation- intact LT/vibration; DTR - 2+, toes downgoing WBC 7.9, Hgb 14.5; Cr 0.9; tox screen negative; blood and urine culture pending Head CT- L > R frontal middle fossa arachnoid cysts; unchanged from 2017; no acute bleed or fracture noted; no sinusitis B temporal arachnoid cysts L > R, unchanged from 2017 Brain MRI to r/o subtle bleed or other acute process, and better delineate arachnoid cyst/mass effect and to r/o enhancing lesions Fever w/u per medical team
--- NOTE | 2017-11-27 12:59 | CONS ---
DATE OF CONSULTATION: 11/27/2017 CHIEF COMPLAINT: Bifrontal headache. HISTORY OF PRESENT ILLNESS: The patient is a 22-year-old right-handed male with no significant past medical history, who complains of a 1-month history of worsening headache which is frontal in nature. His headache has been especially severe since last night. He has mild nausea but no vomiting. He had no dizziness, diplopia, loss of consciousness, weakness, numbness or gait ataxia. He feels occasional dizziness, but it is not pronounced at this time. He has no recent infection. He denies nuchal rigidity. He does understand that he has arachnoid cysts from previous admission. PAST MEDICAL HISTORY: Noncontributory except for bilateral arachnoid cysts. MEDICATIONS: None. ALLERGIES: There are no known drug allergies. FAMILY HISTORY: Noncontributory. SOCIAL HISTORY: He stopped smoking 4 years ago. He used to smoke about a pack a day. He drinks alcohol socially. He does not use recreational drugs. 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 REVIEW OF SYSTEMS: Otherwise negative for other constitutional, head and neck, cardiovascular, pulmonary, gastrointestinal, genitourinary, hematological, neurological or psychological problems except for the above. PHYSICAL EXAMINATION:General: He is awake and alert, oriented x4. His mother is at the bedside. HEENT: Shows him to be normocephalic, atraumatic. Anicteric. Neck: Supple with no lymphadenopathy. No carotid bruit. Coronary: Demonstrated a regular rhythm.Lungs: Clear bilaterally. Abdomen: Soft, nontender, nondistended with active bowel sounds. Extremities: Show no clubbing, cyanosis or edema. Distal pulses are 2+. Neurologic: He is awake and alerted, oriented x4. Cranial nerve examination is intact II-XII. Motor examination is 5/5 strength without drift. Sensory examination intact to light touch and vibratory sensation. Deep tendon reflexes are 2+ throughout. There is no pathologic long-tract sign. His gait is normal. Cerebellar exam demonstrates intact [id number] examination. CT scan of the head demonstrated left greater than right anterior temporal arachnoid cysts. There is no hydrocephalus or midline shift. There is no acute hemorrhage and there is no fracture. This is similar to the appearance of a CAT scan from last year. LABORATORY EXAMINATION: Shows initial white blood cell count of 9.6 and it is now 7.9, hemoglobin is 14.5. BUN is 15 and creatinine is 0.9. LFTs are normal. Calcium is 8.3. Urinalysis is negative. Toxicology screen was negative. IMPRESSION: 1. Bitemporal arachnoid cyst. 2. Rule out infectious process, including urinary tract infection. RECOMMENDATIONS: The patient presents with a chronic intermittent headache worse over the past month and especially worse over yesterday evening. There was mild associated nausea earlier but no vomiting. He has no photophobia. He did have a low-grade temperature in the emergency room and still has a temperature of 99.2 right now. White blood cell count is not elevated at this time. There was no left shift. Blood culture, urine culture are pending. CT scan of the head demonstrated bilateral middle fossa arachnoid cysts. There is a similar mass effect previously. There is no acute blood noted. There are no signs of sinusitis on the head CT scan. An MRI of the brain is recommended to assess the full extent of the mass effect. Contrast is recommended because of his reported temperature and increasing headache. The above was discussed with the patient and his mother at bedside. All questions were answered. Further recommendation will be made upon availability of the MRI imaging study. CB BRAUN M.D. [id number]
--- NOTE | 2017-11-27 13:26 | CON.NEURO ---
Consult Consult Specialty:: Neurology Referred by:: Dr. Kramer Reason for Consultation:: Headache/Arachnoid Cysts - History of Present Illness Chief Complaint: Headache History of Present Illness: Patient awoke with headache yesterday am. He says that he went to bed feeling well but felt the headache upon awakening. The pain is bifrontal, aggravated by moving his eyes, noise, and routine physical activity and bending over. He had a low grade temp when he presented yesterday but not any more. He first had headaches about 3-4 years ago and had a CT scan that showed arachnoid cyst. He apparently also had vertigo then but doesn't recall all hte details. He says that he tends to get headaches about 2 times per year. - History Source History Provided By: Patient, Medical Record Limitations to Obtaining History: Poor Historian - Past Medical History [employer] AD[employer]ISTR[employer]: Yes: Other (headache) - Alcohol/Substance Use Hx Alcohol Use: No - Smoking History Smoking history: Never smoked Have you smoked in the past 12 months: No Home Medications - Allergies Allergies/Adverse Reactions: Allergies Allergy/AdvReac Type Severity Reaction Status Date / Time No Known Allergies Allergy Verified 11/26/17 22:47 - Home Medications Home Medications: Ambulatory Orders NK [No Known Home Medication] 11/27/17 Physical Exam-Neuro Vital Signs: Vital Signs Temperature 99.1 F 11/27/17 10:45 Pulse Rate 84 11/27/17 10:45 Respiratory Rate 14 11/27/17 10:45 Blood Pressure 133/61 11/27/17 10:45 O2 Sat by Pulse Oximetry (%) 99 11/27/17 10:45 Constitutional: Yes: Mild Distress (appears uncomfortable) Labs: CBC, BMP 11/27/17 07:00 11/27/17 07:00 - Neuro Exam Level Of Consciousness: Yes: Alert, Oriented to Person, Oriented to Place, Oriented to Time Eyes: Yes: LUIS Speech: WNL Cranial Nerves II-XII Intact: Yes DTR's: 2+ Left Bicep, 2+ Right Bicep, 2+ Left Tricep, 2+ Right Tricep, 2+ Left Brachioradialis, 2+ Right Brachioradialis, 2+ Left Achilles, 2+ Right Achilles Babinski: Absent Response to light touch: Normal Motor Strength: 5/5: Left Arm, Right Arm, Left Leg, Right Leg Gait: Deferred Imaging - Results Cat Scan: Report Reviewed, Image Reviewed (bilateral l greater than r arachnoid cysts) Problem List - Problems (1) Arachnoid cyst Code(s): G93.0 - CEREBRAL CYSTS (2) Headache Code(s): R51 - HEADACHE Qualifiers: Headache type: unspecified Headache chronicity pattern: acute headache Intractability: not intractable Qualified Code(s): R51 - Headache Assessment/Plan Probably migraine headaches. Doubt arachnoid cyst is etiologic agent. Agree with Dr. Interiano that MRI is reasonable to further delineate. Recommend starting Depacon for the headache and can transition to oral depakote upon discharge.
[2017-11-27] MEDS: VALPROATE SODIUM 500 MG/5 ML VIAL IVPB SCH ×2 (17:11→21:24)
[2017-11-28] MEDS: VALPROATE SODIUM 500 MG/5 ML VIAL IVPB SCH ×2 (06:09→14:00)
--- NOTE | 2017-11-28 09:15 | PN ---
Progress Note (short form) - Note Progress Note: NEUROSURGERY H/o frontal headaches, dizziness and malaise for about one month, worse since last night. Mild nausea yesteday but no vomiting. NO LOC, no visual changes.He also has had tingling sensation in the groin area. He denies drug use. CT scan of the brain showed arachnoid cysts and he had sinus tachycardia with low grade fever. Tmax 99.1, now 99, VSS HEENT- NC/AT; Neck- supple, no nuchal rigidity; Cor- RR; Lungs- CTA B; Abd- benign; Ext- no sign of DVT A/A/Ox3 CN- intact II-XII; Motor- 5/5 without drift; Sensation- intact LT/vibration; DTR - 2+, toes downgoing; Gait-normal WBC 7.9, Hgb 14.5; Cr 0.9; blood culture pending; urine culture negative Head CT- L > R frontal middle fossa arachnoid cysts; unchanged from 2017; no acute bleed or fracture noted; no sinusitis Brain MRI- Large L ant temporal and moderate R ant temporal arachnoid cyst; no sign of bleeding; no enhancement of cyst; no basal arachnoid enhancement B temporal arachnoid cysts L > R, unchanged from 2017; no neurosurgical intervention indicated nor recommended Fever w/u per medical team H/A treatment per neurology Pt aware of the above
--- NOTE | 2017-11-28 13:33 | DS ---
Physical Exam: SUBJECTIVE: Patient seen and examined at bedside. Feels much better. No BELTRAN at this time. OBJECTIVE: Vital Signs Period Temp Pulse Resp BP Sys/Rodriguez Pulse Ox Last 24 Hr 98.2 F-99.1 F 79-94 14-18 117-130/52-77 98-99 PHYSICAL EXAM GENERAL: The patient is awake, alert, and fully oriented, in no acute distress. HEAD: Normal with no signs of trauma. EYES: extraocular movements intact, sclera anicteric, conjunctiva clear. ENT: oropharynx clear without exudates, moist mucous membranes. NECK: Trachea midline, full range of motion, supple. LUNGS: Breath sounds equal, clear to auscultation bilaterally, no wheezes, no crackles, no accessory muscle use. HEART: Regular rate and rhythm, S1, S2 without murmur, rub or gallop. ABDOMEN: Soft, nontender, nondistended, normoactive bowel sounds, no guarding, no rebound, no hepatosplenomegaly, no masses. EXTREMITIES: 2+ pulses, warm, well-perfused, no edema. NEUROLOGICAL: Cranial nerves II through XII grossly intact. Normal speech, gait not observed. PSYCH: Normal mood, normal affect. SKIN: Warm, dry, normal turgor, no rashes or lesions noted. LABS HOSPITAL COURSE: Date of Admission:11/27/17 Date of Discharge: 11/28/17 Pt is a 22 yo M with no PMH who presented to ED with generalized headache and fever. Pt was admitted for workup and treatment. CT head identified b/l temporal lobe arachnoid cysts, which were learned to be unchanged since 2017. Pt was seen by neurology who recommended depacon with transition to PO depakote on D/c. Can follow up with neuro as out pt. Pt was seen by neurosurgery who recommended against intervention at this time. Fever workup was unremarkable. Cx neg, no leukocytosis. Fever resolved after 1 measurement. Pt currently feels well and is afebrile. Pt is currently in no distress and stable for d/c. Minutes to complete discharge: 30 Discharge Summary Reason For Visit: ARACHNOID HEADACHE Current Active Problems Arachnoid cyst (Acute) Headache (Acute) Condition: Good - Instructions Diet, Activity, Other Instructions: You need to follow up with your primary care doctor. You should also follow up with your neurologist and the neurosurgeon. You are being sent home with a medication called Depakote. You need to take 500 mg three times daily. When you see your neurologist you can ask how long you should take this medication. If your symptoms recur or if you develop new symptoms, please return to the emergency department. Referrals: Elijah Nichols MD [Staff Physician] - 2 Weeks Terrell Curiel MD [Primary Care Provider] - 1 Week Tuan Interiano MD [Staff Physician] - 2 Weeks Disposition: HOME - Home Medications Comprehensive Discharge Medication List: Ambulatory Orders NK [No Known Home Medication] 11/27/17 This patient is new to me today: Yes Date on this admission: 11/29/17 Emergency Visit: No Critical Care patient: No - Discharge Referral Referred to [facility] Med P.C[facility] No
--- NOTE | 2017-11-28 14:18 | PN ---
Progress Note, Physician History of Present Illness: Patient awoke with headache yesterday am. He says that he went to bed feeling well but felt the headache upon awakening. The pain is bifrontal, aggravated by moving his eyes, noise, and routine physical activity and bending over. He had a low grade temp when he presented yesterday but not any more. He first had headaches about 3-4 years ago and had a CT scan that showed arachnoid cyst. He apparently also had vertigo then but doesn't recall all hte details. He says that he tends to get headaches about 2 times per year. Today he has no headache and feels much better. - Current Medication List Current Medications: Active Medications Valproate Sodium (Depacon Injection -) 500 mg IVPB TID VÍCTOR Last Admin: 11/28/17 06:09 Dose: 500 mg - Objective Vital Signs: Vital Signs Temperature 98.5 F 11/28/17 08:36 Pulse Rate 79 11/28/17 08:36 Respiratory Rate 18 11/28/17 08:36 Blood Pressure 117/52 11/28/17 08:36 O2 Sat by Pulse Oximetry (%) 98 11/28/17 09:00 Neurological: Yes: WNL Labs: CBC, BMP 11/27/17 07:00 11/27/17 07:00 Problem List - Problems (1) Arachnoid cyst Code(s): G93.0 - CEREBRAL CYSTS (2) Headache Code(s): R51 - HEADACHE Qualifiers: Headache type: unspecified Headache chronicity pattern: acute headache Intractability: not intractable Qualified Code(s): R51 - Headache Assessment/Plan Probably migraine headaches. Doubt arachnoid cyst is etiologic agent. Agree with Dr. Interiano that MRI is reasonable to further delineate. Recommend starting Depacon for the headache and can transition to oral depakote upon discharge. For discharge today. He can take 2 Alleve as needed q 12. he has my card.
[2017-11-28 16:15] VITALS: BP 132/58; PULSE 80; TEMP 98.3
--- NOTE | 2017-11-30 00:37 | EKG ---
Test Reason : Blood Pressure : / mmHG Vent. Rate : 083 BPM Atrial Rate : 083 BPM P-R Int : 182 ms QRS Dur : 092 ms QT Int : 372 ms P-R-T Axes : 065 055 035 degrees QTc Int : 437 ms NORMAL SINUS RHYTHM NORMAL ECG WHEN COMPARED WITH ECG OF 02-DEC-2016 18:39, NO SIGNIFICANT CHANGE WAS FOUND Confirmed by MIRELLA GÓMEZ MD ([id number]) on 11/30/2017 12:36:43 AM Referred By: Confirmed By:MIRELLA GÓMEZ MD
== END 2017-11-28 13:15 | disposition home or self-care (01) ==
LOC: JER 22:33 → JERBED 11-27 06:01 → J7W 11-27 11:51
PROVIDERS: ADMIT Internal Medicine; ATTEND Internal Medicine
PROC: 3E0333Z Introduction of Anti-inflammatory into Peripheral Vein, Percutaneous Approach (ICD-10-PCS; principal; 2017-11-27)
PROC: 3E033GC Introduction of Other Therapeutic Substance into Peripheral Vein, Percutaneous Approach (ICD-10-PCS; 2017-11-27)
PROC: 3E0337Z Introduction of Electrolytic and Water Balance Substance into Peripheral Vein, Percutaneous Approach (ICD-10-PCS; 2017-11-27)
DX: G93.0 Cerebral cysts (principal); R51 Headache; R00.0 Tachycardia, unspecified; E83.51 Hypocalcemia
CPT/HCPCS: 36415; 70450-TC; 70553-TC; 71046-TC-FY; 80053; 80307; 81003; 85025; 87040; 87070; 87086; 87430; 87491; 87591; 87661; 93005; 93010; 96361; 96374; 96375; 99285-25; G0378; J7030